=== PATIENT | female | born 1950 | race Caucasian/White ===

== ENCOUNTER → 2016-10-16 | Outpatient (CLI) | payer MEDICARE, OTHER | END | disposition disaster alternative care site (69) | LOC: GAMB 16:50 | DX: E86.0 Dehydration (principal); R42 Dizziness and giddiness; R53.1 Weakness; R07.9 Chest pain, unspecified; R06.02 Shortness of breath; R10.9 Unspecified abdominal pain; R11.0 Nausea; Z79.01 Long term (current) use of anticoagulants; Z79.891 Long term (current) use of opiate analgesic | CPT/HCPCS: A0425; A0427 ==